=== PATIENT | male | born 1985 | race African-American/Black ===

== ENCOUNTER 2017-02-19 13:32 | Emergency (ER) | payer OTHER ==
[~2017-02-19] VITALS: Ht 177.8 cm; Wt 77.0 kg
[~2017-02-19 13:32] MED LIST: CIPR500T2 PO; PERC7.5T13 PO; Z.0.NO CURRENT MEDS
[2017-02-19 13:34] VITALS: BP 140/84; PULSE 84; RESP 20; TEMP 97.4; O2SAT 100
[2017-02-19] MEDS ORDERED: ALBU0.63 NEB (14:19)
[2017-02-19 14:20] VITALS: BP 127/81; PULSE 74; RESP 18; O2SAT 100
[2017-02-19] MEDS ORDERED: SODIUM CHLOR 0.9% 1000 ML INJ 1,000 ML IV SCH ×2 (14:29)
--- NOTE | 2017-02-19 14:32 | PD ---
HPI Chief Complaint: Cold / Flu Symptoms Time Seen by Provider: 14:25 Travel History International Travel<30 days: No Contact w/Intl Traveler<30days: No Traveled to known affect area: No History of Present Illness HPI 31-year-old male presents for evaluation. For the past 2 months he has had cough, congestion, chills and myalgias, intermittent fevers, dizziness, sweats. He reports that he has been seen at outside clinics and diagnosed with bronchitis and laryngitis. Twice she has been on rounds of azithromycin, most recently completing a round of azithromycin 2 days ago. The symptoms have persisted which prompted evaluation. He reports his fevers have been as high as 101, most recently last week. He has had episodes of dizziness. He has had generalized weakness. The cough is productive with yellow, occasional blood -tinged sputum. He endorses some mild shortness of breath. He denies chest pain, neck stiffness, abdominal pain, vomiting, dysuria, flank pain, constipation, rash, joint swelling. He does endorse recent travel to [place] by air, this was at the end of January. He denies any calf swelling. He has no other complaints at this time. [facility] Past Medical History Cancer: No Diabetes: No Diminished Hearing: No Glaucoma: No Hepatitis: No Hiatal Hernia: No Hypertension: No Thyroid Disease: No Tetanus Vaccination: Unknown Past Surgical History Pacemaker: No Other Surgery: Yes Social History Alcohol Use: Yes (SOCIALLY) Tobacco Use: No Substance Use: No Allergies-Medications (Allergen,Severity, Reaction): Coded Allergies: Penicillin (Verified Allergy, Unknown, 02/19/17) Reported Meds & Prescriptions Reported Meds & Active Scripts Active Zofran (Ondansetron HCl) 4 Mg Tab 4 Mg PO Q6HR PRN Reported Albuterol Neb (Albuterol Sulfate) 0.63 Mg/3 Ml Neb 0.63 Mg NEB Q6HR NEB PRN Review of Systems Except as stated in HPI: all other systems reviewed are Neg Physical Exam Narrative GENERAL: Well-developed well-nourished male in no acute distress SKIN: Warm and dry. HEAD: Atraumatic. Normocephalic. EYES: Pupils equal and round. No scleral icterus. No injection or drainage. ENT: No nasal bleeding or discharge. Mucous membranes pink and moist. No oral pharyngeal erythema or exudate. NECK: Trachea midline. No JVD. Neck supple with Full range of motion CARDIOVASCULAR: Regular rate and rhythm. No murmur appreciated. RESPIRATORY: No accessory muscle use. Clear to auscultation. Breath sounds equal bilaterally. GASTROINTESTINAL: Abdomen soft, non-tender, nondistended. Hepatic and splenic margins not palpable. MUSCULOSKELETAL: No obvious deformities.No edema. NEUROLOGICAL: Awake and alert. No obvious cranial nerve deficits. Motor grossly within normal limits. Normal speech. Data Data Last Documented VS Vital Signs Date Time Temp Pulse Resp B/P Pulse Ox O2 Delivery O2 Flow Rate FiO2 02/19/17 14:20 74 18 127/81 100 Room Air 02/19/17 13:34 97.4 Orders Complete Blood Count With Diff (02/19/17 14:29) Comprehensive Metabolic Panel (02/19/17 14:29) Lactic Acid Sepsis Protocol (02/19/17 14:29) Magnesium (Mg) (02/19/17 14:29) Influenzae A/B Antigen (02/19/17 14:29) Chest, Pa & Lat (02/19/17 14:29) Monoscreen (02/19/17 14:29) D-Dimer (02/19/17 14:29) Sodium Chlor 0.9% 1000 Ml Inj (Ns 1000 M (02/19/17 14:29) Sodium Chlor 0.9% 1000 Ml Inj (Ns 1000 M (02/19/17 14:29) Hiv 1 2 Ab Differentiation (02/19/17 14:35) Creatine Kinase (Cpk) (02/19/17 14:29) Labs Laboratory Tests Test 02/19/17 02/19/17 14:50 14:58 Sodium Level 140 MEQ/L Potassium Level 3.9 MEQ/L Chloride Level 105 MEQ/L Carbon Dioxide Level 27.8 MEQ/L Anion Gap 7 MEQ/L Blood Urea Nitrogen 8 MG/DL Creatinine 0.95 MG/DL Estimat Glomerular Filtration 114 ML/MIN Rate Random Glucose 76 MG/DL Calcium Level 9.4 MG/DL Magnesium Level 2.0 MG/DL Total Bilirubin 0.3 MG/DL Aspartate Amino Transf 28 U/L (AST/SGOT) Alanine Aminotransferase 40 U/L (ALT/SGPT) Alkaline Phosphatase 44 U/L Total Creatine Kinase 186 U/L Total Protein 8.0 GM/DL Albumin 3.8 GM/DL White Blood Count 4.6 TH/MM3 Red Blood Count 5.11 MIL/MM3 Hemoglobin 15.3 GM/DL Hematocrit 45.8 % Mean Corpuscular Volume 89.6 FL Mean Corpuscular Hemoglobin 30.0 PG Mean Corpuscular Hemoglobin 33.4 % Concent Red Cell Distribution Width 12.4 % Platelet Count 198 TH/MM3 Mean Platelet Volume 8.5 FL Neutrophils (%) (Auto) 52.0 % Lymphocytes (%) (Auto) 31.4 % Monocytes (%) (Auto) 11.1 % Eosinophils (%) (Auto) 4.7 % Basophils (%) (Auto) 0.8 % Neutrophils # (Auto) 2.4 TH/MM3 Lymphocytes # (Auto) 1.4 TH/MM3 Monocytes # (Auto) 0.5 TH/MM3 Eosinophils # (Auto) 0.2 TH/MM3 Basophils # (Auto) 0.0 TH/MM3 CBC Comment DIFF FINAL Differential Comment D-Dimer Quantitative (PE/DVT) 0.40 MG/L FEU Lactic Acid Level 1.3 mmol/L Monoscreen NEG MDM Medical Decision Making Medical Screen Exam Complete: Yes Emergency Medical Condition: Yes Medical Record Reviewed: Yes Interpretation(s) Chest x-ray: CONCLUSION: 1. No acute cardiopulmonary findings. Differential Diagnosis Bronchitis, upper respiratory infection, pneumonia, sinusitis, HIV, infectious mononucleosis, [place] Narrative Course This is a 31-year-old male who for 2 months has been experiencing cough and cold, intermittent fevers, myalgias, chills. He has been experiencing some dizziness and shortness of breath. He has had a cough with yellow sputum, occasionally blood-tinged. He has been on 2 rounds of azithromycin as an outpatient with no improvement of his symptoms. Physical examination is unremarkable. Plan is for basic lab work, chest x-ray, influenza antigen, mono screen. He'll be given IV fluids. He has agreed to HIV testing. Laboratory has been reviewed. CBC is unremarkable. CMP is unremarkable. Lactic acid within normal limits. D-dimer is negative. [place] screen is negative. Chest x-ray is normal. Influenza antigen mono screen are negative. The patient will be given copy of all of his lab results and he is encouraged to follow-up with his primary care physician if symptoms persist. Likely he is suffering from a viral syndrome. HIV antibody testing was ordered and is currently pending at the time of his discharge. He is instructed to follow up about these results. He is stable for discharge. Diagnosis Primary Impression: Viral syndrome Referrals: [facility] Primary Care Physician Additional Instructions: Stay well-hydrated and well-nourished, get plenty of rest. Follow-up with a primary care physician if symptoms persist. Return for any emergent medical conditions. Med/Other Pt SpecificInfo: Prescription(s) given Scripts Ondansetron (Zofran)4 Mg Tab4 Mg PO Q6HR PRN (NAUSEA OR VOMITING) #20 TAB Ref 0 Prov:Clif Langford MD 02/19/17 Disposition: DISCHARGE HOME Condition: Stable Moncho Gillis Feb 19, 2017 14:32
--- NOTE | 2017-02-19 14:56 | RADRPT ---
EXAM DATE/TIME: 02/19/2017 14:49 [place] COMPARISON: No previous studies available for comparison. INDICATIONS : Cough for 6 weeks. Green sputum. MEDICAL HISTORY : None. SURGICAL HISTORY : None. ENCOUNTER: Initial ACUITY: 2 months PAIN SCORE: 0/10 LOCATION: Bilateral chest FINDINGS: PA and lateral views of the chest demonstrate the lungs to be symmetrically aerated without evidence of mass, infiltrate or effusion. The cardiomediastinal contours are unremarkable. Osseous structure s are intact. CONCLUSION: 1. No acute cardiopulmonary findings. Jax Duron MD on February 19, 2017 at 14:53 Board Certified Radiologist. This report was verified electronically.
[2017-02-19 15:38] LABS: AUTOMATED NEUTROPHIL # 2.4 TH/MM3 (1.8-7.7); BASOPHIL % 0.8 % (0.0-2.0); EOSINOPHIL # 0.2 TH/MM3 (0-0.4); EOSINOPHIL % 4.7 % (0.0-4.0); HEMATOCRIT 45.8 % (39.0-51.0); HEMO FLAGS DIFF FINAL; LYMPH % 31.4 % (9.0-44.0); LYMPHOCYTE # 1.4 TH/MM3 (1.0-4.8); MEAN CELL VOLUME 89.6 FL (80.0-100.0); MEAN CORPUSCULAR HGB CONC 33.4 % (32.0-36.0); MONO % 11.1 % (0.0-8.0); PLATELET COUNT 198 TH/MM3 (150-450); RED BLOOD COUNT 5.11 MIL/MM3 (4.50-5.90); RED CELL DISTRIBUTION WIDTH 12.4 % (11.6-17.2); WHITE BLOOD COUNT 4.6 TH/MM3 (4.0-11.0)
[2017-02-19 16:05] LABS: ALKALINE PHOSPHATASE 44 U/L (45-117); CREATINE KINASE 186 U/L (39-308); TOTAL BILIRUBIN ADULT 0.3 MG/DL (0.2-1.0)
[2017-02-19 16:12] LABS: ALT (GPT) 40 U/L (12-78); ANION GAP 7 MEQ/L (5-15); AST (GOT) 28 U/L (15-37); BICARBONATE 27.8 MEQ/L (21.0-32.0); BLOOD UREA NITROGEN 8 MG/DL (7-18); CHLORIDE 105 MEQ/L (98-107); GLOMERULAR FILTRATION RATE 114 ML/MIN (>89); POTASSIUM 3.9 MEQ/L (3.5-5.1); SODIUM (NA) 140 MEQ/L (136-145)
[2017-02-19] MEDS ORDERED: ZOFR4TAB PO (16:40)
== END 2017-02-19 18:01 | disposition home or self-care (01) ==
LOC: NEPD 13:32
DX: B34.9 Viral infection, unspecified (principal)
CPT/HCPCS: 71020; 80053; 82550; 83605; 83735; 85025; 85379; 86308; 86703; 87804; 96360; 96361; 99284; J7030